=== PATIENT | male | born 1955 | race Caucasian/White ===

== ENCOUNTER 2016-06-30 15:20 | Emergency (ER) | payer BC ==
[2016-06-30 16:15] VITALS: BP 168/75
--- NOTE | 2016-06-30 22:04 | UC ---
Abdominal Pain Male HPI - HPI Summary HPI Summary: nausea and vomiting since he was put on Augmentin for runny nose. Also started gabapentin and a probiotic at the same time. No fever. Mild dry cough. Nose has cleared up. Poor appetite today. Vomited once. Constant nausea. No diarrhea. - History of Current Complaint Chief Complaint: UCGI Stated Complaint: NAUSEA,UPPER RESPIRATORY Time Seen by Provider: 06/30/16 16:21 Hx Obtained From: Patient Onset/Duration: Gradual Onset, Lasting Days - 2 Timing: Constant Severity Initially: Mild Severity Currently: Mild Pain Intensity: 0 Pain Scale Used: 0-10 Numeric Character: Aching, Dull Aggravating Factor(s):: Food Alleviating Factor(s): Nothing Associated Signs And Symptoms: Positive: Decreased Appetite, Nausea, Vomiting - Risk Factors Cardiac Risk Factors: Hypertension - Allergies/Home Medications Allergies/Adverse Reactions: Allergies Allergy/AdvReac Type Severity Reaction Status Date / Time No Known Allergies Allergy Verified 10/02/14 14:01 Home Medications: Home Medications Amoxicillin/Clavulanate TAB* [Augmentin TAB 875*] 875 mg PO BID 06/30/16 [ History Confirmed 06/30/16] Coke Syrup 2 tbsp PO PRN 06/30/16 [History] Gabapentin CAP(*) [Neurontin 100 mg CAP(*)] 100 mg PO TID 06/30/16 [History Confirmed 06/30/16] Probiotic Product [Acidophilus] 1 cap PO DAILY 06/30/16 [History Confirmed 06/30] PMH/Surg Hx/FS Hx/Imm Hx Endocrine History Of: Denies: Diabetes, Hypothyroidism Cardiovascular History Of: Reports: Hypertension Denies: Pacemaker/ICD, Congestive Heart Failure Respiratory History Of: Reports: Bronchitis Denies: Asthma GI/ History Of: Denies: Renal Disease - Surgical History Surgical History: None Surgery Procedure, Year, and Place: Basal cell cancer removed from bridge of nose. hernIA repair age 2 and again in adulthood. T&A - Family History Known Family History: Positive: Hypertension - Social History Occupation: Employed Full-time Lives: With Family Alcohol Use: Daily Alcohol Amount: 2 per day Substance Use Type: None Smoking Status (MU): Never Smoked Tobacco Review of Systems Constitutional: Negative Skin: Negative Eyes: Negative ENT: Negative Respiratory: Negative Cardiovascular: Negative Gastrointestinal: Abdominal Pain, Vomiting Genitourinary: Negative Motor: Negative Neurovascular: Negative Musculoskeletal: Negative Neurological: Negative Psychological: Negative All Other Systems Reviewed And Are Negative: Yes Physical Exam Triage Information Reviewed: Yes Appearance: Well-Appearing, No Pain Distress, Well-Nourished Vital Signs: Initial Vital Signs Temp 98.2 F 06/30/16 16:03 Pulse 72 06/30/16 16:03 Resp 16 06/30/16 16:03 BP 168/75 06/30/16 16:03 Pulse Ox 97 06/30/16 16:03 Vital Signs Reviewed: Yes Eye Exam: Normal Neck exam: Normal Respiratory Exam: Normal Respiratory: Positive: Lungs clear Cardiovascular Exam: Normal Abdominal Exam: Normal Abdomen Description: Positive: Nontender, No Organomegaly Musculoskeletal Exam: Normal Neurological Exam: Normal Psychological Exam: Normal Skin Exam: Normal Abd Pain Male Course/Dx - Course Course Of Treatment: stop Augmentin. I don't see evidence of bacterial infection. He will check with his MD tomorrow to see if she feels he needs another antibiotic - Differential Dx/Clinical Impression Provider Diagnoses: adverse reaction to Augmentin Discharge - Discharge Plan Condition: Stable Disposition: HOME Prescriptions: Benzonatate CAP* [Tessalon CAP*] 100 mg PO TID PRN #20 cap PRN Reason: Cough Guaifenesin-Codeine [Cheratussin AC 100-10 mg/5Ml] 2 teasp PO BEDTIME PRN #100 ml MDD 10cc PRN Reason: Cough Ondansetron ODT TAB* [Zofran Odt TAB*] 4 mg PO Q6H PRN #6 tab.odt PRN Reason: Nausea Patient Education Materials: Upper Respiratory Infection (ED) Referrals: Lj Neville MD [Primary Care Provider] - Additional Instructions: STOP the Augmentin. It is likely that this is making you nauseated. It will not help an upper respiratory viral infection. Check with your doctor to see if she feels strongly that you need to be on another antibiotic. You will likely have chest congestion and a cough with this virus that will last on average 3 weeks.
== END 2016-06-30 16:51 | disposition home or self-care (01) ==
LOC: UCCORT 15:20
DX: R11.2 Nausea with vomiting, unspecified (principal); T36.0X5A Adverse effect of penicillins, initial encounter; Y92.9 Unspecified place or not applicable
CPT/HCPCS: 99212; G0463